=== PATIENT | female | born 1970 | race Caucasian/White ===

== ENCOUNTER 2024-10-30 08:53 | Day surgery (SDC) | payer OTHER ==
[~2024-10-30] VITALS: Ht 177.8 cm; Wt 90.6 kg
[~2024-10-30 08:53] MED LIST: NS 500 ML IV ONE
[2024-10-30] MEDS ORDERED: NS 1,000 ML IV ONE (09:08)
[2024-10-30] MEDS ORDERED: EXCEDRIN (09:17)
[2024-10-30] MEDS ORDERED: Midazolam HCl 1MG / ML 2ML Vial ONE (09:19)
[2024-10-30] MEDS ORDERED: FentaNYL Citrate 50 MCG/ML 2 ML Injection ONE (09:46)
[2024-10-30] MEDS ORDERED: propofoL 20 ML IV ONE ×2 (09:46→09:59)
[2024-10-30] MEDS ORDERED: Lidocaine 1%-Epineph 1:100000 20 ML MDV INJ ONE (10:03)
--- NOTE | 2024-10-30 10:22 | NUR ---
10/30/24 [facility] AT BEDSIDE
== END 2024-10-30 10:37 | disposition home or self-care (01) ==
LOC: ORSCSDS 08:53
PROVIDERS: Orthopaedic Surgery
PROC: 0LN70ZZ Release Right Hand Tendon, Open Approach (ICD-10-PCS; principal; 2024-10-30 09:30)
DX: M65.331 Trigger finger, right middle finger (principal); F41.9 Anxiety disorder, unspecified; F32.A Depression, unspecified; F17.210 Nicotine dependence, cigarettes, uncomplicated
CPT/HCPCS: J2250; J2704; J3010; J7040

== ENCOUNTER → 2025-03-27 | Outpatient (CLI) | payer OTHER ==
[~2025-03-27] MED LIST changes: +EXCEDRIN; -NS 500 ML IV ONE
== END ==
LOC: LAB SHORT 16:41 → LAB 16:41
PROVIDERS: Physician Assistant
DX: Z12.4 Encounter for screening for malignant neoplasm of cervix (principal)
CPT/HCPCS: 87624; G0145